=== PATIENT | female | born 1980 | race Asian ===

== ENCOUNTER 2020-03-13 15:38 | Emergency (ER) | payer OTHER ==
[2020-03-13 16:19] LABS: BASOPHILS % (AUTO) 0.2 %; EOSINOPHILS # (AUTO) 0.1 10^3/uL (0.0-0.7); EOSINOPHILS % (AUTO) 0.8 %; HGB - HEMOGLOBIN 13.7 g/dL (12.0-16.0); LYMPHOCYTES # (AUTO) 1.4 10^3/uL (1.5-3.5); LYMPHOCYTES % (AUTO) 15.1 %; MEAN CORPUSCULAR HEMOGLOBIN 31.7 pg (27.0-31.0); MEAN CORPUSCULAR HGB CONC 34.5 g/dL (32.0-36.0); MEAN CORPUSCULAR VOLUME 91.9 fL (81.0-99.0); MEAN PLATELET VOLUME 9.7 fL (7.9-10.8); MONOCYTES # (AUTO) 0.5 10^3/uL (0.0-1.0); MONOCYTES % (AUTO) 5.8 %; NEUTROPHILS % (AUTO) 77.8 %; PLT - PLATELET COUNT 235 10^3/uL (130-450); RED BLOOD COUNT 4.32 10^6/uL (4.20-5.40); RED CELL DISTRIBUTION WIDTH 12.4 % (12.0-15.0)
[2020-03-13 16:30] LABS: ALBUMIN/GLOBULIN RATIO 1.3 (1.0-2.2); BILIRUBIN,TOTAL 0.4 mg/dL (0.2-1.0); CALCIUM 9.3 mg/dL (8.5-10.3); CREATININE 0.5 mg/dL (0.4-1.0); TOTAL PROTEIN 7.2 g/dL (6.7-8.2)
[2020-03-13 17:27] VITALS: BP 124/85
[2020-03-13 17:29] LABS: BILIRUBIN,URINE NEGATIVE (NEGATIVE); CLARITY,URINE CLEAR (CLEAR); GLUCOSE, URINE (UA) NEGATIVE (NEGATIVE); KETONES,URINE (UA) NEGATIVE (NEGATIVE); LEUKOCYTE ESTERASE, URINE NEGATIVE (NEGATIVE); NITRITE,URINE NEGATIVE (NEGATIVE); OCCULT BLOOD,URINE LARGE (NEGATIVE); PROTEIN,URINE NEGATIVE (NEGATIVE); UROBILINOGEN,URINE 0.2 (NORMAL) E.U./dL (NORMAL)
[2020-03-13 17:42] LABS: BACTERIA,URINE Many /HPF (None Seen); SQUAMOUS EPITHELIAL CELL,UR MANY Squamous (<= Few)
[2020-03-13] MEDS ORDERED: cephALEXin 250 MG CAPSULE PO STA (17:47)
--- NOTE | 2020-03-13 17:53 | ED Physician Documentation ---
History of Present Illness - Stated complaint Stated Complaint: BLEEDING - Chief complaint Chief Complaint: Abd Pain - History obtained from History obtained from: Patient - History of Present Illness Timing: Today Pain level max: 0 Pain level now: 0 - Additonal information Additional information: Patient is a 31-year-old female 3 para 2 who presents to the emergency department with vaginal bleeding today. She states she is approximately 11 weeks . Has not had any tissue past. She is seen at the [facility] for her care. No abdominal pain. Occasional cramping. No discharge. 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 - Present Medications Home Medications: Ambulatory Orders Medication Instructions Recorded Confirmed Cephalexin [Keflex] 500 mg PO Q6H #20 capsule 03/13/20 - Allergies Allergies/Adverse Reactions: Allergies Allergy/AdvReac Type Severity Reaction Status Date / Time No Known Drug Allergies Allergy Verified 03/13/20 15:47 - Social History Does the pt smoke?: No Smoking Status: Never smoker Does the pt drink ETOH?: No Does the pt have substance abuse?: No - Immunizations Immunizations: TDAP current <10years PD ED PE NORMAL - Vitals Vital signs reviewed: Yes - General General: Alert and oriented X 3, No acute distress, Well developed/nourished - HEENT HEENT: PERRL, Moist mucous membranes - Neck Neck: Supple, no meningeal sign - Cardiac Cardiac: RRR, Strong equal pulses - Respiratory Respiratory: No respiratory distress, Clear bilaterally - Abdomen Abdomen: Soft, Non tender, Non distended - Female Female : Pt declined - Derm Derm: Warm and dry - Extremities Extremities: No edema, No calf tenderness / cord - Neuro Neuro: Alert and oriented X 3 - Psych Psych: Normal mood, Normal affect Results - Vitals Vitals: Vital Signs - 24 hr 03/13/20 03/13/20 15:42 17:24 Temperature 37.1 C Heart Rate 80 68 Respiratory 20 18 Rate Blood Pressure 142/91 H 124/85 H O2 Saturation 99 100 Oxygen O2 Source Room air - Labs Labs: Laboratory Tests 03/13/20 03/13/20 03/13/20 16:10 16:10 16:10 WBC 9.0 RBC 4.32 Hgb 13.7 Hct 39.7 MCV 91.9 MCH 31.7 H MCHC 34.5 RDW 12.4 Plt Count 235 MPV 9.7 Neut # (Auto) 7.0 H Lymph # (Auto) 1.4 L [place] # (Auto) 0.5 Eos # (Auto) 0.1 Baso # (Auto) 0.0 Absolute Nucleated RBC 0.00 Nucleated RBC % 0.0 Sodium 135 Potassium 4.5 Chloride 98 L Carbon Dioxide 28 Anion Gap 9.0 BUN 10 Creatinine 0.5 Estimated GFR (MDRD) 138 Glucose 97 Calcium 9.3 Total Bilirubin 0.4 AST 18 ALT 19 Alkaline Phosphatase 38 L Total Protein 7.2 Albumin 4.0 Globulin 3.2 Albumin/Globulin Ratio 1.3 Lipase 43 HCG, Quant Urine Color Urine Clarity Urine pH Ur Specific Webb Urine Protein Urine Glucose (UA) Urine Ketones Urine Occult Blood Urine Nitrite Urine Bilirubin Urine Urobilinogen Ur Leukocyte Esterase Urine RBC Urine WBC Ur Squamous Epith Cells Urine Bacteria Ur Microscopic Review Urine Culture Comments Blood Type O POSITIVE 03/13/20 03/13/20 16:10 17:15 WBC RBC Hgb Hct MCV MCH MCHC RDW Plt Count MPV Neut # (Auto) Lymph # (Auto) [place] # (Auto) Eos # (Auto) Baso # (Auto) Absolute Nucleated RBC Nucleated RBC % Sodium Potassium Chloride Carbon Dioxide Anion Gap BUN Creatinine Estimated GFR (MDRD) Glucose Calcium Total Bilirubin AST ALT Alkaline Phosphatase Total Protein Albumin Globulin Albumin/Globulin Ratio Lipase HCG, Quant 702725.00 Urine Color YELLOW Urine Clarity CLEAR Urine pH 6.0 Ur Specific Webb 1.025 Urine Protein NEGATIVE Urine Glucose (UA) NEGATIVE Urine Ketones NEGATIVE Urine Occult Blood LARGE H Urine Nitrite NEGATIVE Urine Bilirubin NEGATIVE Urine Urobilinogen 0.2 (NORMAL) Ur Leukocyte Esterase NEGATIVE Urine RBC 11-25 H Urine WBC 4-5 Ur Squamous Epith Cells MANY Squamous H Urine Bacteria Many H Ur Microscopic Review INDICATED Urine Culture Comments NOT INDICATED Blood Type - Rads (name of study) OB ultrasound Radiology: Prelim report reviewed, EMP read contemporaneously, See rad report (viable intrauterine with average ultrasound age of 11 weeks 3 days. ) PD MEDICAL DECISION MAKING - ED course Complexity details: reviewed results, re-evaluated patient, considered differential, d/w patient ED course: Patient with an IUP. Average ultrasound age of 11 weeks and 3 days. We will treat for UTI as well. She is well-appearing, nontoxic. Afebrile. She states that her bleeding has resolved. No evidence of ectopic. Patient counseled regarding signs and symptoms for which I believe and urgent re-evaluation would be necessary. Patient with good understanding of and agreement to plan and is comfortable going home at this time This document was made in part using voice recognition software. While efforts are made to proofread this document, sound alike and grammatical errors may occur. Departure - Departure Disposition: 01 Home, Self Care Clinical Impression: Vaginal bleeding affecting early Subchorionic hematoma in first trimester Qualifiers: Fetus number: single or unspecified fetus Qualified Code(s): O41.8X10 - Other specified disorders of amniotic fluid and membranes, first trimester, not applicable or unspecified UTI (urinary tract infection) Qualifiers: Urinary tract infection type: acute cystitis Hematuria presence: without hematuria Qualified Code(s): N30.00 - Acute cystitis without hematuria Condition: Good Instructions: ED Miscarriage Poss, ED UTI Cystitis Female Follow-Up: [facility] [Provider Group] - Within 3 Days Prescriptions: Cephalexin [Keflex] 500 mg PO Q6H #20 capsule Comments: Follow-up with your credentialing assistant for further care. The baby appears normal on ultrasound today. You do have a small subchorionic hemorrhage. This normally does not cause issues, but may cause bleeding. We will treat you for a bladder infection as well. Return if you worsen. Discharge Date/Time: 03/13/20 18:23
--- NOTE | 2020-03-13 18:20 | Ultrasound Report ---
PROCEDURE: OB First Trimester INDICATIONS: 10 weeks preg, VB OUTSIDE/PRIOR DATING DATA: Last menstrual period (LMP): 12/29/2019. LMP-based estimated date of delivery (NUBIA): 10/04/2020. First dating scan (date and location): 03/10/2020, [facility]. Estimated date of delivery (NUBIA) from first dating scan: 09/29/2020. TECHNIQUE: Real-time scanning was performed of the fetus and maternal pelvic organs, with image documentation. COMPARISON: None FINDINGS: Embryo: Greene[place]-rump length is 4.7 cm corresponding to gestational age of 11 weeks 3 days. The mean sa c diameter is 5.7 cm corresponding to a gestational age of 11 weeks 5 days. heart rate is 168 b pm. Maternal organs: Ovaries within normal limits. Limited images through the kidneys demonstrate no hy dronephrosis. IMPRESSION: Bible intrauterine with average ultrasound age of 11 weeks 3 days. Reviewed by: Chris Madden MD on 03/13/2020 6:19 PM PDT Approved by: Chris Madden MD on 03/13/2020 6:19 PM PDT Station ID: [id number]
== END 2020-03-13 18:23 | disposition home or self-care (01) ==
LOC: ED 15:38
DX: O20.9 Hemorrhage in early pregnancy, unspecified (principal); O41.8X10 Other specified disorders of amniotic fluid and membranes, first trimester, not applicable or unspecified; O23.11 Infections of bladder in pregnancy, first trimester; N30.00 Acute cystitis without hematuria; Z3A.11 11 weeks gestation of pregnancy
CPT/HCPCS: 36415; 76801; 80053; 81001; 83690; 84702; 85025; 86900; 86901; 99284; A9270; 81003; 87086

== ENCOUNTER 2020-09-23 10:14 | Outpatient (CLI) | payer OTHER | END 2020-09-23 10:15 | disposition critical access hospital (66) | LOC: EMS 10:14 | PROVIDERS: ATTEND Obstetrics & Gynecology | DX: O26.93 Pregnancy related conditions, unspecified, third trimester (principal) | CPT/HCPCS: A0425; A0429 ==

== ENCOUNTER 2020-09-23 10:41 | Inpatient (IN) | payer OTHER ==
[2020-09-23] MEDS ORDERED: LACTATED RINGERS 1,000 ML IV ONE (10:51)
[2020-09-23] MEDS ORDERED: OXYTOCIN/SODIUM CHLORIDE 500 ML IV ONE (10:51)
[2020-09-23] MEDS ORDERED: miSOPROStoL 200 MCG TABLET ONE (10:51)
[2020-09-23] MEDS ORDERED: METHYLERGONOVINE 0.2 MG/ML VIAL ONE (10:51)
[2020-09-23] MEDS ORDERED: CARBOPROST TROMETHAMINE 250 MCG/ML AMP IM ONE (10:52)
[2020-09-23] MEDS ORDERED: LIDOCAINE 1% 2 ML VIAL ONE (11:07)
[2020-09-23] MEDS ORDERED: LIDOCAINE-MPF 1% 30 ML VIAL ONE (11:08)
[2020-09-23] MEDS ORDERED: METHYLERGONOVINE 0.2 MG/ML VIAL IM PRN (11:44)
[2020-09-23] MEDS ORDERED: OXYTOCIN 10 UNIT/ML VIAL IM PRN (11:44)
[2020-09-23] MEDS ORDERED: miSOPROStoL 200 MCG TABLET BC PRN (11:44)
[2020-09-23] MEDS ORDERED: OXYTOCIN/SODIUM CHLORIDE 500 ML IV PRN (11:44)
[2020-09-23] MEDS ORDERED: LIDOCAINE-MPF 1% 30 ML VIAL ID PRN (11:44)
[2020-09-23] MEDS ORDERED: SODIUM CHLORIDE FLUSH 0.9% 10 ML SYRINGE IVP PRN (11:44)
[2020-09-23] MEDS ORDERED: CARBOPROST TROMETHAMINE 250 MCG/ML AMP IM PRN (11:44)
[2020-09-23] MEDS ORDERED: TRANEXAMIC ACID IN NACL 1,000 MG/100 ML BAG IV PRN (11:44)
[2020-09-23] MEDS ORDERED: oxyCODONE 5 MG TABLET PO PRN (11:51)
[2020-09-23] MEDS ORDERED: ACETAMINOPHEN 325 MG TABLET PO PRN (11:51)
[2020-09-23] MEDS ORDERED: HYDROCORTISONE 1% CREAM 28 GM TUBE PR PRN (11:51)
[2020-09-23] MEDS ORDERED: ONDANSETRON 4 MG/2 ML VIAL IVP PRN (11:51)
[2020-09-23] MEDS ORDERED: diphenhydrAMINE 25 MG CAPSULE PO PRN (11:51)
[2020-09-23] MEDS ORDERED: WITCH HAZEL/GLYCERIN 1 PAD TOP PRN (11:51)
[2020-09-23] MEDS ORDERED: LACTATED RINGERS 1,000 ML IV SCH ×2 (12:00)
--- NOTE | 2020-09-23 12:09 | DELIVERY NOTE ---
Delivery Note - Labor Labor: positive: Spontaneous - Delivery Method Delivery Method: positive: Spontaneous vaginal delivery, Vaginal after - Presentation Presentation: positive: Vertex, VIN - left occiput anterior - Nuchal Cord Nuchal Cord: positive: None - Anesthetic Anesthetic Type: Anesthetic: positive: Lidocaine - 1% plain - Amniotic Fluid Description Amniotic Fluid Description: positive: Clear - Episiotomy Type Episiotomy Type: positive: Midline - Laceration Laceration: positive: 2nd degree - Suture Suture Type: positive: Vicryl Suture Size: positive: 3-0 - Delivery Outcome Delivery Outcome: positive: Livebirth - Maddock : positive: Placed in direct skin contact with mother, Bulb syringe, Stimulated, Dennison used Maddock sex: positive: Male (Apgars 9/9) - Placenta Placenta: positive: Intact - Estimated Blood Loss Estimated Blood Loss (in cc): 400 - Post Delivery Events Post Delivery Events: positive: No post delivery events - Delivery Comments (Free Text/Narrative) Delivery Comments (Free Text/Narrative): Patient presented to labor and delivery at 10:38 in advanced state of labor. She was checked and noted to be completely dilated clearly effaced +1 with her membranes intact. Patient had previously successfully had a vaginal after section. She states her second stage last time was 17 minutes. At this point my assessment was that even though the team of been called in that delivery vaginally would be the quickest process. AROM at 10:53 Clear fluid. She reached complete at 1040 upon her first examination she started pushing 5 minutes later at 1055. She delivered the head left occiput anterior at 1105 giving her a correction and deliver the remainder the baby baby at 1106 giving her an 11-minute second stage. Her placenta followed soon after an 1113 was delivered inspected and felt to be intact. At time of delivery a second-degree episiotomy was cut because of the tightness of the perineum. This was repaired with 3-0 Vicryl in standard fashion. Estimated blood loss was 400 cc.
--- NOTE | 2020-09-23 12:20 | PREOP HISTORY & PHYSICAL ---
DATE OF SERVICE: 09/23/2020 Physician: Gagan Jimenez MD IDENTIFICATION: Patient is a 40-year-old G3, P2 female. Her due date is 10/04. This was done by ve rbal communication. This makes her 38 weeks and 4 days. CHIEF COMPLAINT: Active labor. HISTORY OF PRESENT ILLNESS: Patient states that about midnight last night, she started developing co ntractions. They became increasingly more frequent and painful. At 6:30, she and her left t o go to the hospital in [place] where she was scheduled for a vaginal after section . However, because the contractions became stronger and more painful, they elected to summon an ambu kelle, at which time she was taken here because of previous section and what appeared to be active labor. Obstetric record is unobtainable for me at this time; however, she does have a history of having a bl ood type done early in her at 11 weeks, which is noted to be O positive. Patient also stat es that she had gestational diabetes that she managed with diet and exercise. She denies any other c omplications with this particular . Her OB chart is not available to me at this time. She has a history of having a first done for what appears to be an abruption or a clot behind t he placenta. She had a successful following this. She was planning to attempt another vaginal after section at [place] in [place]. However, because of timing and the increased pain, she was brought here by ambulance. PAST MEDICAL HISTORY: Patient denies any diabetic history. She does have a history of gestational d iabetes. PAST SURGICAL HISTORY: Previous section. ALLERGIES: NONE KNOWN. CURRENT MEDICATIONS: vitamins. HABITS: Patient denies use of alcohol, tobacco or street or addictive drugs. SOCIAL HISTORY: Patient is . 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 PHYSICAL EXAMINATION HEENT: Pupils are equal, round. Extraocular muscles are intact. HEART: Regular rate and rhythm. LUNGS: Lung osuna are clear without rales or wheezes. BACK: No spinal or CVA tenderness noted. ABDOMEN: Gravid with intermittent contractions occurring about every 3-4 minutes. PELVIC: Cervical examination on admission showed a cervix, which was complete. Membranes intact. N o evidence of any bleeding on the examining hand and the head was +1. Patient was also left occiput anterior. IMPRESSION 1. A 40-year-old G3, P2 female at 38-4/7 weeks. 2. Previous section. 3. Active labor. 4. Advanced labor. 5. Gestational diabetes. 6. Possible history of an abruption. PLAN: Because patient was so close to delivery, it was decided to proceed on with a vaginal delivery . Patient is aware of the risk of uterine rupture. The team had been summoned. TD: 09/23/2020 12:05
[2020-09-23 12:59] LABS: BASOPHILS % (AUTO) 0.2 %; EOSINOPHILS % (AUTO) 0.1 %; HCT - HEMATOCRIT 35.3 % (37.0-47.0); HGB - HEMOGLOBIN 12.2 g/dL (12.0-16.0); LYMPHOCYTES # (AUTO) 0.5 10^3/uL (1.5-3.5); LYMPHOCYTES % (AUTO) 3.1 %; MEAN CORPUSCULAR HGB CONC 34.6 g/dL (32.0-36.0); MEAN CORPUSCULAR VOLUME 95.4 fL (81.0-99.0); MONOCYTES # (AUTO) 0.6 10^3/uL (0.0-1.0); MONOCYTES % (AUTO) 3.8 %; NEUTROPHILS # (AUTO) 14.8 10^3/uL (1.5-6.6); NEUTROPHILS % (AUTO) 92.4 %; PLT - PLATELET COUNT 159 10^3/uL (130-450); RED CELL DISTRIBUTION WIDTH 13.6 % (12.0-15.0)
[2020-09-23] MEDS: IBUPROFEN 600 MG TABLET PO SCH (15:36)
[2020-09-23] MEDS ORDERED: SODIUM CHLORIDE FLUSH 0.9% 10 ML SYRINGE IVP SCH (17:00)
[2020-09-23] MEDS ORDERED: DOCUSATE SODIUM 100 MG CAPSULE PO SCH (21:00)
[2020-09-24] MEDS: IBUPROFEN 600 MG TABLET PO SCH (03:35)
--- NOTE | 2020-09-24 09:04 | PROVIDER PROGRESS NOTE ---
Subjective - Prog Note Date Prog Note Date: 09/24/20 Prog Note Time: 09:02 - Subjective Pt reports feeling: Improved (PAIN 0/10. MILK NOT IN YET. VOIDING EASLY) Objective - Vital Signs/Intake & Output Reviewed Vital Signs: Yes Vital Signs: Vital Signs x48h Temp Pulse Resp BP Pulse Ox 09/24/20 08:49 99 121/70 99 09/24/20 03:27 37.2 C 80 18 118/64 99 Intake & Output: Intake & Output 09/21/20 09/22/20 09/23/20 09/24/20 23:59 23:59 23:59 23:59 Intake Total 500 Output Total 850 Balance -350 - Objective General Appearance: positive: No acute distress, Alert Respiratory: positive: Chest non-tender, No respiratory distress, Breath sounds nml Cardiovascular: positive: Regular rate & rhythm, No murmur, No gallop Abdomen: positive: Non-tender, Nml bowel sounds, Mass (U-1) Back: negative: CVA tenderness (R), CVA tenderness (L) Skin: positive: Color nml, No rash, Warm, Dry Extremities: negative: Calf tenderness, Kelvin's sign/cords - Lab Results Fish Bones: 09/24/20 05:02 Other Labs: Lab Results x24hrs 09/24/20 09/23/20 Range/Units 05:02 12:53 WBC 16.0 H (4.8-10.8) x10^3/uL RBC 3.70 L (4.20-5.40) 10^6/uL Hgb 10.9 L 12.2 (12.0-16.0) g/dL Hct 35.3 L (37.0-47.0) % MCV 95.4 (81.0-99.0) fL MCH 33.0 H (27.0-31.0) pg MCHC 34.6 (32.0-36.0) g/dL RDW 13.6 (12.0-15.0) % Plt Count 159 (130-450) 10^3/uL MPV 11.0 H (7.9-10.8) fL Neut # (Auto) 14.8 H (1.5-6.6) 10^3/uL Lymph # (Auto) 0.5 L (1.5-3.5) 10^3/uL [place] # (Auto) 0.6 (0.0-1.0) 10^3/uL Eos # (Auto) 0.0 (0.0-0.7) 10^3/uL Baso # (Auto) 0.0 (0.0-0.1) 10^3/uL Absolute Nucleated RBC 0.00 x10^3/uL Nucleated RBC % 0.0 /100WBC Assessment/Plan - Problem List (1) Vaginal after Impression: Pt came in with advanced stage of labor. successfully delivered vaginaly with out sequella Send home. Reviewed Breast feeding Contraception bleeding Discharge medications Motrin home supply RTC one week here or at Prov.
[2020-09-24 12:33] VITALS: BP 112/72
--- NOTE | 2020-09-24 16:11 | Labor Flowsheet ---
Labor Flowsheet Datetime Report Generated by CPN: 09/24/2020 16:11 Datetime: 09/24/2020 12:26 VITAL SIGNS NBP Sys/Meredith/Mean (mmHg): 112 : 72 : 82 Pulse: 91 Datetime: 09/23/2020 14:59 Respirations: 18 SpO2 (%): 98 Temperature (C): 36.7 Temperature Route: Oral Datetime: 09/23/2020 11:31 Stage of : Recovery
--- NOTE | 2020-09-24 18:08 | DISCHARGE SUMMARY ---
Physician: Gagan Jimenez MD DATE OF ADMISSION: 09/23/2020 DATE OF DISCHARGE: ADMITTING DIAGNOSES: 1. A 40-year-old G3, P2 at 38 and 4/7 weeks. 2. Previous section. 3. Advanced state of labor. 4. Gestational diabetes. DISCHARGE DIAGNOSES: 1. A 40-year-old G3, P2 at 38 and 4/7 weeks. 2. Previous section. 3. Advanced state of labor. 4. Gestational diabetes. 5. Vaginal after section. PROCEDURES: Vaginal after section, episiotomy with repair. PRESENTING HISTORY: The patient is a 40-year-old female, 3, para 2, who was 38 weeks and 4 days. Her due date was 10/04/2020. She presented to our labor and delivery unit with a history of a previous section and advanced state of labor. Upon arrival, her cervix was completely dilated. She was +1. She had a history of a 17-minute second stage and for this reason it was felt that an expeditious for her to deliver vaginally. Her OB care was done at [facility] in [place], [place] and her records were not available to us at that time. For this reason, we reacted to the current condition and expedited a vaginal delivery. The patient's laboratories: Patient was group B strep negative. Her blood type was noted to be O positive and she is rubella immune. Laboratories immediately following delivery, her hemoglobin was 12.2, white count was 16,000, hematocrit was 35.3, platelets 159. Today her hemoglobin is 10.3. HOSPITAL COURSE: The patient was admitted, at which time a vaginal delivery was delivered, following an 11-minute second stage. The team had been called in and felt that vaginal delivery would be the appropriate action. Her course was significant only that she had some urinary retention, which resolved spontaneously. Currently, she is doing well. She is afebrile. She is . She states her pain scale is 0/10. We are planning to discharge her to home today; however, if the infant stays she may room in. I have discussed , contraception as well as fever. We are sending her home. She may take her Motrin home supply. She does not require any narcotics at this time. We have instructed to followup in the clinic in one week that may be either with us or with her clinic in [place]. TD: 09/24/2020 09:19 ASHLEY
== END 2020-09-24 13:00 | disposition home or self-care (01) | DRG 807 ==
LOC: WFO 10:41 → FBP 10:46 → WFO 11:05
PROVIDERS: ADMIT Obstetrics & Gynecology; ATTEND Obstetrics & Gynecology
PROC: 10E0XZZ Delivery of Products of Conception, External Approach (ICD-10-PCS; principal; 2020-09-23)
PROC: 0W8NXZZ Division of Female Perineum, External Approach (ICD-10-PCS; 2020-09-23)
PROC: 10907ZC Drainage of Amniotic Fluid, Therapeutic from Products of Conception, Via Natural or Artificial Opening (ICD-10-PCS; 2020-09-23)
DX: O34.219 Maternal care for unspecified type scar from previous cesarean delivery (principal); Z37.0 Single live birth; N85.8 Other specified noninflammatory disorders of uterus; O24.429 Gestational diabetes mellitus in childbirth, unspecified control; O90.89 Other complications of the puerperium, not elsewhere classified; R33.9 Retention of urine, unspecified; Z3A.38 38 weeks gestation of pregnancy
CPT/HCPCS: 85018; 85025; A9270; J7120; 86850; 86900; 86901

== ENCOUNTER 2020-09-26 14:14 | Outpatient (CLI) | payer OTHER ==
--- NOTE | 2020-09-26 15:50 | Labor Flowsheet ---
Labor Flowsheet Datetime Report Generated by CPN: 09/26/2020 15:50 Datetime: 09/24/2020 12:26 VITAL SIGNS NBP Sys/Meredith/Mean (mmHg): 112 : 72 : 82 Pulse: 91 Datetime: 09/23/2020 14:59 Respirations: 18 SpO2 (%): 98 Temperature (C): 36.7 Temperature Route: Oral Datetime: 09/23/2020 11:31 Stage of : Recovery
== END 2020-09-26 15:15 | disposition home or self-care (01) ==
LOC: FBP 14:14 → WFO 14:14
PROVIDERS: ATTEND Pediatrics
DX: Z39.1 Encounter for care and examination of lactating mother (principal)
CPT/HCPCS: 99404

== ENCOUNTER 2023-07-31 08:15 | Outpatient (CLI) | payer OTHER ==
[2023-07-31 15:11] LABS: BACTERIAL VAGINOSIS DNA NEGATIVE (NEGATIVE); CANDIDA GLABRATA DNA NEGATIVE (NEGATIVE); CANDIDA GROUP DNA NEGATIVE (NEGATIVE); CANDIDA KRUSEI DNA NEGATIVE (NEGATIVE); TRICHOMONAS VAGINALIS DNA NEGATIVE (NEGATIVE)
== END 2023-07-31 08:30 | disposition home or self-care (01) ==
LOC: LAB.N 08:15
PROVIDERS: ATTEND Physician Assistant Medical
DX: R30.0 Dysuria (principal); R35.0 Frequency of micturition
CPT/HCPCS: 81514; 87086

== ENCOUNTER 2023-08-01 10:44 | Outpatient (CLI) | payer OTHER | END 2023-08-01 10:45 | disposition home or self-care (01) | LOC: LAB.N 10:44 | PROVIDERS: ATTEND Physician Assistant Medical | DX: R35.0 Frequency of micturition (principal) | CPT/HCPCS: 87086 ==

== ENCOUNTER 2024-04-01 09:56 | Outpatient (CLI) | payer OTHER ==
--- NOTE | 2024-04-01 15:39 | MRI Report ---
PROCEDURE: Shoulder RT WO INDICATIONS: R SHOULDER PAIN TECHNIQUE: Noncontrast oblique coronal T2 fast spin echo with fat saturation, oblique sagittal T1 spin echo and T2 fast spin echo with fat saturation, axial T1 spin echo and T2 fast spin echo with fat saturation t hrough the shoulder. COMPARISON: None. FINDINGS: Image quality: Excellent. Bones: Insertional cysts are present at the posterior-lateral humeral head (3/10). The bone marrow si gnal is otherwise normal. There is no acute fracture or dislocation. Acromioclavicular joint: There is no significant degenerative change. There is a type 2 acromion. Glenohumeral joint: There is no significant osteoarthritis. There is no significant joint effusion. Labrum: There is no evidence of a labral tear. Cartilage: There is no significant articular cartilage defect. Subacromial-subdeltoid bursa: There is no significant amount of fluid in the subacromial-subdeltoid b ursa. Rotator cuff: Mild supraspinatus tendinosis is present The infraspinatus tendon is intact. The subsca pularis tendon is intact. The teres minor tendon is intact. Long head of biceps tendon: The long head of the biceps tendon is present within the bicipital groove and intact. Musculature: Muscle bulk is preserved without evidence of denervation or fatty atrophy. Inferior glenohumeral ligaments/Axillary pouch: The axillary pouch is thickened with low signal. Coracoclavicular and coracoacromial ligaments: The coracoclavicular and coracoacromial ligaments are normal. Other: There is loss of the fat signal in the rotator interval. IMPRESSION: 1.No evidence of rotator cuff tear on non-arthrographic evidence of a labral tear. 2.Mild supraspinatus tendinosis. 3.Findings suggestive of adhesive capsulitis. Reviewed by: Tony Ibarra MD on 04/01/2024 3:38 PM PDT Approved by: Tony Ibarra MD on 04/01/2024 3:38 PM PDT Station ID: [id number]
== END 2024-04-01 09:57 | disposition home or self-care (01) ==
LOC: DI 09:56
DX: M75.91 Shoulder lesion, unspecified, right shoulder (principal)